=== PATIENT | female | born 2000 | race Caucasian/White ===

== ENCOUNTER 2022-11-12 20:46 | Emergency (ER) | payer OTHER ==
[~2022-11-12] VITALS: Ht 160 cm; Wt 98.0 kg
[2022-11-12 20:54] VITALS: BP 124/91
[2022-11-12] MEDS ORDERED: Ketoconazole15 GM TOP (21:31)
== END 2022-11-12 21:44 | disposition home or self-care (01) ==
LOC: ER 20:46
DX: B37.2 Candidiasis of skin and nail (principal)
CPT/HCPCS: 99283